=== PATIENT | male | born 1955 | race Caucasian/White ===

== ENCOUNTER 2020-02-01 17:26 | Emergency (ER) | payer BC ==
[2020-02-01 17:45] VITALS: RESP 18
[2020-02-01] MEDS ORDERED: LIDOCAINE 1% INJ 10MG/ML (20 ML MDV) SQ ONE (18:07)
[2020-02-01] MEDS ORDERED: DIPH,PERTUS(ACELL)TETVAC-LF 0.5 ML VIAL IM ONE (18:12)
[2020-02-01] MEDS ORDERED: MORPHINE SULFATE 4 MG/ML SYRINGE IVP STA (18:12)
[2020-02-01 18:54] LABS: Basophils % (A) 0 %; Eosinophils # (A) 0.1 k/uL (0-0.7); Eosinophils % (A) 2 %; HCT 39.7 % (39.0-53.0); HGB 13.7 gm/dL (13.0-17.5); Lymphocytes # (A) 1.3 k/uL (1.0-4.8); Lymphocytes % (A) 21 %; MCH 34.1 pg (25.0-35.0); MCHC 34.4 g/dL (31.0-37.0); MCV 99.2 fL (80.0-100.0); Mean Platelet Volume 7.7; Monocytes # (A) 0.4 k/uL (0-1.0); Monocytes % (A) 6 %; Neutrophils # (A) 4.2 k/uL (1.3-7.7); Neutrophils % (A) 69 %; Platelet Count 201 k/uL (150-450); RDW 12.3 % (11.5-15.5); WBC 6.2 k/uL (3.8-10.6)
--- NOTE | 2020-02-01 18:58 | XR ---
EXAMINATION TYPE: XR finger LT DATE OF EXAM: 02/01/2020 COMPARISON: NONE HISTORY: Laceration TECHNIQUE: 3 views FINDINGS: There is soft tissue laceration defect at the anterior aspect of the IP joint of the thumb. I see no evidence of radiopaque foreign body. There is osteoarthritic narrowing of the IP joint spac e. IMPRESSION: Laceration deformity. No fracture seen. No foreign body seen.
[2020-02-01 19:04] LABS: African American GFR (CKD) >90 (>60 ml/min/1.73 sqM); Anion Gap 9 mmol/L; Blood Urea Nitrogen 10 mg/dL (9-20); Calcium 9.4 mg/dL (8.4-10.2); Carbon Dioxide 27 mmol/L (22-30); Chloride 93 mmol/L (98-107); Glucose 99 mg/dL (74-99); Non-African American GFR(CKD) >90 (>60 ml/min/1.73 sqM); Potassium 4.2 mmol/L (3.5-5.1); Sodium 129 mmol/L (137-145)
[2020-02-01 19:24] VITALS: PULSE 59; TEMP 98.1
--- NOTE | 2020-02-01 19:53 | ED ---
Wound/Laceration HPI - General Chief Complaint: Wound/Laceration Stated Complaint: Finger laceration Time Seen by Provider: 02/01/20 17:57 Source: patient Mode of arrival: ambulatory Limitations: no limitations - History of Present Illness Initial Comments: Patient is 64-year-old male presenting to the emergency department with laceration. Patient reports incident occurred about one hour prior to arrival. Patient reports he was using a table saw when he actually lacerated his left thumb. Patient reports the laceration is mostly located to the palmar aspect. Denies any numbness or tingling but states it is painful. Patient reports full range of motion in the interphalangeal joint of the left thumb. Patient denies taking medication to alleviate the symptoms. Tetanus is not up-to-date. - Related Data Home Medications Medication Instructions Recorded Confirmed Cholecalciferol [Vitamin D3] 1,000 unit PO DAILY 11/28/14 12/02/14 amLODIPine BESYLATE/BENAZEPRIL 1 each PO DAILY 11/28/14 12/02/14 [Amlodipine-Benazepril 5-40 mg] Allergies Allergy/AdvReac Type Severity Reaction Status Date / Time No Known Allergies Allergy Verified 02/01/20 17:45 Review of Systems ROS Statement: Those systems with pertinent positive or pertinent negative responses have been documented in the HPI. ROS Other: All systems not noted in ROS Statement are negative. Past Medical History Past Medical History: Hypertension History of Any Multi-Drug Resistant Organisms: None Reported Past Surgical History: No Surgical Hx Reported Smoking Status: Never smoker Past Alcohol Use History: None Reported Past Drug Use History: None Reported General Exam Limitations: no limitations General appearance: alert, in no apparent distress Head exam: Present: atraumatic, normocephalic, normal inspection Eye exam: Present: normal appearance, PERRL, EOMI Pupils: Present: normal accommodation ENT exam: Present: normal exam, normal oropharynx, mucous membranes moist. Absent: TM's normal bilaterally, normal external ear exam Neck exam: Present: normal inspection, full ROM Respiratory exam: Present: normal lung sounds bilaterally. Absent: respiratory distress, wheezes Cardiovascular Exam: Present: regular rate, normal rhythm, normal heart sounds Extremities exam: Present: full ROM (Full range of motion in the interphalangeal joint of the left thumb.), tenderness (Tenderness at the site of injury), normal capillary refill, other (+2 ulnar and radial pulses bilaterally.). Absent: normal inspection (Irregular laceration on the palmar medial aspect of the left thumb. Laceration about 3 cm. Able to visualize white tissue, either tendon or bone.) Back exam: Present: normal inspection, full ROM Neurological exam: Present: alert, oriented X3 Psychiatric exam: Present: normal affect, normal mood Skin exam: Present: warm, dry, intact, normal color Course Vital Signs 02/01/20 02/01/20 02/01/20 17:43 19:23 19:45 Temperature 98.5 F 98.1 F Pulse Rate 54 L 59 L Respiratory 18 18 Rate Blood Pressure 102/57 187/95 194/88 O2 Sat by Pulse 97 98 Oximetry Procedures - Laceration Laceration #1 Consent Obtained: verbal consent Indication: laceration Site: other (Left thumb) Size (cm): 3 Description: flap, irregular, clean Depth: simple, single layer Sedation/Analgesia: none Anesthetic Used: lidocaine 1% Anesthesia Technique: nerve block Amount (mls): 5 Pre-repair: irrigated extensively, deep structures intact, wound margins revised Type of Sutures: nylon Size of Sutures: 4-0 Number of Sutures: 9 Technique: simple, interrupted Complications: pain, bleeding Patient Tolerated Procedure: well, no complications - Nerve Block Consent Obtained: verbal consent Local Anesthetic Used: Lidocaine 1% Amount of anesthesia used: 5 Side: left Nerve Blocks: digital (Left thumb) Procedure Successful: Yes Complications: none, pain with procedure Patient Tolerated Procedure: well, no complications Medical Decision Making - Medical Decision Making Patient is 64-year-old male presenting to the emergency department with a laceration. Patient has full range of motion in the interphalangeal joint of the left thumb. The laceration is irregular and deep enough to visualize a white tissue which could either be a tendon or bone. No signs of a foreign body. Laceration site was thoroughly irrigated. Patient was given Ancef. Patient was also given morphine for pain. Digital block performed. Laceration site was repaired with 9 sutures. I tried to bring the original contour of the skin back to its original place. Patient advised to follow-up with orthopedics. Advised to alternate between Tylenol and Motrin for pain control. He was neurovascularly intact otherwise. X-rays negative for any fractures or foreign bodies. Return parameters thoroughly discussed with patient was understanding and agreeable. Case discussed with physician. - Lab Data Result diagrams: 02/01/20 18:41 02/01/20 18:41 Lab Results 02/01/20 02/01/20 Range/Units 18:41 18:41 WBC 6.2 (3.8-10.6) k/uL RBC 4.00 L (4.30-5.90) m/uL Hgb 13.7 (13.0-17.5) gm/dL Hct 39.7 (39.0-53.0) % MCV 99.2 (80.0-100.0) fL MCH 34.1 (25.0-35.0) pg MCHC 34.4 (31.0-37.0) g/dL RDW 12.3 (11.5-15.5) % Plt Count 201 (150-450) k/uL Neutrophils % 69 % Lymphocytes % 21 % Monocytes % 6 % Eosinophils % 2 % Basophils % 0 % Neutrophils # 4.2 (1.3-7.7) k/uL Lymphocytes # 1.3 (1.0-4.8) k/uL Monocytes # 0.4 (0-1.0) k/uL Eosinophils # 0.1 (0-0.7) k/uL Basophils # 0.0 (0-0.2) k/uL Sodium 129 L (137-145) mmol/L Potassium 4.2 (3.5-5.1) mmol/L Chloride 93 L (98-107) mmol/L Carbon Dioxide 27 (22-30) mmol/L Anion Gap 9 mmol/L BUN 10 (9-20) mg/dL Creatinine 0.82 (0.66-1.25) mg/dL Est GFR (CKD-EPI)AfAm >90 (>60 ml/min/1.73 sqM) Est GFR (CKD-EPI)NonAf >90 (>60 ml/min/1.73 sqM) Glucose 99 (74-99) mg/dL Calcium 9.4 (8.4-10.2) mg/dL Disposition Clinical Impression: Laceration, Thumb injury Disposition: HOME SELF-CARE Condition: Stable Instructions (If sedation given, give patient instructions): Care For Your Stitches (DC), Laceration (DC) Additional Instructions: Alternate between Tylenol and Motrin for pain control. Please follow up with an dairy management specialist. Return to emergency department if symptoms worsen. Is patient prescribed a controlled substance at d/c from ED?: No Referrals: Julianne Bello DO [Primary Care Provider] - 1-2 days Esau Corcoran DO [Doctor of Osteopathic Medicine] - 1-2 days Time of Disposition: 19:53
[2020-02-01 20:08] VITALS: BP 194/88
== END 2020-02-01 20:08 | disposition home or self-care (01) ==
LOC: EC 17:26
DX: S61.012A Laceration without foreign body of left thumb without damage to nail, initial encounter (principal); I10 Essential (primary) hypertension; Z23 Encounter for immunization; Z79.899 Other long term (current) drug therapy; W27.8XXA Contact with other nonpowered hand tool, initial encounter
CPT/HCPCS: 36415; 80048; 85025; 73140; 90715; 99283; 96365; 96375; 90471; 64450; 12002; J2270; J0690; J2001

== ENCOUNTER → 2020-04-16 | Day surgery (SDC) | payer BC, MEDICARE ==
[2020-04-15 11:17] VITALS: BMI 25.3
[~2020-04-16] MED LIST: LACTATED RINGERS 1,000 ML IV SCH; LIDOCAINE 1% (10MG/ML) FOR IV START INTRADERMA ONE; LIDOCAINE 1% INJ 10MG/ML (20 ML MDV) ONE; PROPOFOL 10 MG/ML 20 ML VIAL IV ONE
[2020-04-16 08:26] VITALS: RESP 16; TEMP 97.1
--- NOTE | 2020-04-16 10:02 | P.PCN ---
Date of Procedure: 04/16/20 Procedure(s) Performed: BRIEF HISTORY: Patient is a 64-year-old pleasant male scheduled for an elective colonoscopy as a part of screening for colon cancer and family history of colon cancer. PROCEDURE PERFORMED: Colonoscopy with snare polypectomy. PREOPERATIVE DIAGNOSIS: Screening for colon cancer/family history of colon cancer. IV sedation per Anesthesia. PROCEDURE: After informed consent was obtained, the patient, was brought into the endoscopy unit. IV sedation was administered by Anesthesia under continuous monitoring. Digital rectal examination was normal. Initially the Olympus CF-160 flexible video colonoscope was then inserted in the rectum, gradually advanced into the cecum without any difficulty. Careful examination was performed as the scope was gradually being withdrawn. Ileocecal valve and the appendiceal orifice were visualized and appeared normal. Prep was excellent. Mucosa of the cecum, ascending colon, transverse colon appeared normal. In the descending colon there was a 5 limited polyp that was removed by snare polypectomy. Rest of the, descending colon, sigmoid colon, and rectum appeared normal. Retroflexion was performed in the rectum and no lesions were seen. The patient tolerated the procedure well. IMPRESSION: 5 mm descending colon polyp status post polypectomy Rest of the colon appeared normal RECOMMENDATIONS: Findings of this examination were discussed with the patient as well as his family. He was advised to follow with the biopsy results and have a repeat surveillance colonoscopy in 5 years from now..
[2020-04-16 10:27] VITALS: BP 128/72; PULSE 59
== END ==
LOC: ORWHC2ENDO 07:57
PROVIDERS: ATTEND Internal Medicine Gastroenterology
DX: Z12.11 Encounter for screening for malignant neoplasm of colon (principal); D12.4 Benign neoplasm of descending colon; Z80.0 Family history of malignant neoplasm of digestive organs; Z79.891 Long term (current) use of opiate analgesic; I10 Essential (primary) hypertension; Z87.891 Personal history of nicotine dependence; Z79.899 Other long term (current) drug therapy; Z97.2 Presence of dental prosthetic device (complete) (partial)
CPT/HCPCS: 88305; 45385; J2001; J2704

== ENCOUNTER → 2021-04-28 | Outpatient (CLI) | payer MEDICARE, OTHER ==
--- NOTE | 2021-04-28 15:38 | CTL ---
EXAMINATION TYPE: CT Low Dose Lung DATE OF EXAM ORDERED: 04/28/2021 HISTORY: Long-term tobacco use. Lung cancer screening CT DLP: 101.[address] CTDI: 2.6 mGy Automated exposure control for dose reduction was used. SCREENING VISIT: Baseline. COMPARISON: None. TECHNIQUE: Low dose computed tomography scan was performed through the chest at 1 mm thick sections a nd reconstructed images in the coronal plane at [address] DIAGNOSTIC QUALITY: Satisfactory FINDINGS: LUNG NODULES: None. LUNGS: COPD: Severity: Mild to moderate Fibrosis: Severity: Mild scattered Lymph nodes: No greater than 1 cm Other findings: None RIGHT PLEURAL SPACE: Effusion: None Calcification: None Thickening: None Pneumothorax: None LEFT PLEURAL SPACE: Effusion: None Calcification: None Thickening: None Pneumothorax: None HEART: Heart Size: Normal Coronary calcification: Moderate to severe three-vessel and/or coronary stents. Correlate clinically. Pericardial effusion: None OTHER FINDINGS: Upper abdomen: None Bony thorax: None Supraclavicular region: None Other: None IMPRESSION: No suspicious pulmonary nodules. CT LUNG RAD AND CT CHEST RECOMMENDATION: 1-negative S Modifier (other clinically significant findings): S Moderate to severe three-vessel coronary artery calcification and/or stents, correlate clinically.
== END | disposition home or self-care (01) ==
LOC: RADCTMAIN 14:56
PROVIDERS: ATTEND Family Medicine
DX: Z12.2 Encounter for screening for malignant neoplasm of respiratory organs (principal); Z87.891 Personal history of nicotine dependence
CPT/HCPCS: 71271

== ENCOUNTER → 2022-06-09 | Outpatient (CLI) | payer MEDICARE, OTHER ==
--- NOTE | 2022-06-09 13:23 | CTL ---
EXAMINATION TYPE: CT Low Dose Lung DATE OF EXAM ORDERED: 06/09/2022 COMPARISON: 04/28/21 HISTORY: . Low Dose CT Lung Screening CT DLP: 112.[address] CTDI: 3.10 mGy IV CONTRAST USED: None. SCREENING VISIT: First visit COMPARISON: None. TECHNIQUE: Low dose computed tomography scan was performed through the chest at 1 millimeter thick se ctions and reconstructed images in the coronal plane at [address] DIAGNOSTIC QUALITY: Satisfactory FINDINGS: LUNG NODULES: Not presentLeft lung: no nodules identified.Right lung: no nodules identified. LUNGS: COPD: Severity: mild Fibrosis: Severity:None Lymph nodes: None Other findings: None RIGHT PLEURAL SPACE: Effusion: None Calcification: None Thickening: None Pneumothorax: None LEFT PLEURAL SPACE: Effusion: None Calcification: Moderate to severe three-vessel coronary artery calcification and/or stents, correlate clinically. Thickening: None Pneumothorax: None HEART: Heart Size: Mildly enlarged Coronary calcification: Mild Pericardial effusion: None OTHER FINDINGS: Upper abdomen: No significant abnormality Bony thorax: Degenerative changes Supraclavicular region: No significant abnormalityOther: No significant abnormalityI IMPRESSION: No nodules seen FOLLOW UP CT CHEST RECOMMENDATION: Follow-up screening in one year CT LUNG RAD: LUNG RAD CATEGORY Negative category 1
== END | disposition home or self-care (01) ==
LOC: RADCTMAIN 12:33
PROVIDERS: ATTEND Family Medicine
DX: Z12.2 Encounter for screening for malignant neoplasm of respiratory organs (principal); Z87.891 Personal history of nicotine dependence
CPT/HCPCS: 71271